=== PATIENT | male | born 1970 | race Caucasian/White ===

== ENCOUNTER → 2018-11-13 | Outpatient (CLI) | payer OTHER ==
--- NOTE | 2018-11-13 11:03 | PCVCIMAG ---
APPROVED REPORT Study performed: 11/13/2018 09:52:02 EXAM: Comprehensive 2D, Doppler, and color-flow Echocardiogram Patient Location: Echo lab Status: routine BSA: 2.51 HR: 64 bpmBP: 136/92 mmHg Rhythm: NSR Other Information Study Quality: Adequate Risk Factors: Cardiac Risk Factors: HTN Indications Abnormal ECG Pulmonary Embolism Dyspnea 2D Dimensions IVSd: 12.91 (7-11mm) LVDd: 50.93 mm PWd: 13.90 (7-11mm)Ascending Ao: 38.45 (22-36mm) LVDs: 36.01 (25-40mm) Left Atrium: 47.67 (27-40mm) Aortic Root: 35.44 mm LV Single Plane 4CH: 55.32 % LV Single Plane 2CH: 59.32 % Biplane EF: 56.7 % Volumes Left Atrial Volume (Systole) Single Plane 4CH: 98.43 mLSingle Plane 2CH: 84.39 mL LA ESV Index: 38.00 mL/m2 Aortic Valve AoV Peak Jose.: 1.47 m/s AO Peak Gr.: 8.59 mmHgLVOT Max P.07 mmHg LVOT Max V: 1.23 m/s Mitral Valve E/A Ratio: 1.2 MV Decel. Time: 264.75 ms MV E Max Jose.: 0.67 m/s MV A Jose.: 0.56 m/s IVRT: 100.35 ms Pulmonary Valve PV Peak Jose.: 1.03 m/sPV Peak Gr.: 4.20 mmHg Pulmonary Vein P Vein S: 0.41 m/sP Vein A: 0.34 m/s P Vein D: 0.43 m/sP Vein A Dur.: 155.7 msec P Vein S/D Ratio: 0.95 Tricuspid Valve TR Peak Jose.: 2.67 m/s TR Peak Gr.: 28.48 mmHg TV Vmax: 0.52 m/s Left Ventricle The left ventricle is normal size. There is normal LV segmental wall motion. Mild concentric left ventricular hypertrophy. Left ventricular systolic function is normal. The left ventricular ejection fraction is within the normal range. LVEF is 55%. Grade I - abnormal relaxation pattern. Right Ventricle The right ventricle is normal size. The right ventricular systolic function is normal. Atria Left atrium is mildly dilated. The right atrium size is normal. Aortic Valve The aortic valve is normal in structure. Trace aortic regurgitation. There is no aortic valvular stenosis. Mitral Valve The mitral valve is normal in structure. Trace mitral regurgitation. No evidence of mitral valve stenosis. Tricuspid Valve The tricuspid valve is normal in structure. Trace to mild tricuspid regurgitation with PAP of 35 mmHg. Pulmonic Valve The pulmonary valve is normal in structure. There is no pulmonic valvular regurgitation. Great Vessels The aortic root is normal in size. IVC is normal in size and collapses >50% with inspiration. Pericardium There is no pericardial effusion. There is no pleural effusion. <Conclusion> The left ventricle is normal size. Mild concentric left ventricular hypertrophy. Left ventricular systolic function is normal. Grade I - abnormal relaxation pattern. The right ventricle is normal size. Left atrium is mildly dilated. The right atrium size is normal. Trace aortic regurgitation. Trace mitral regurgitation. Trace to mild tricuspid regurgitation with PAP of 35 mmHg.
--- NOTE | 2018-11-13 11:05 | PCVCIMAG ---
APPROVED REPORT Study performed: 11/13/2018 10:24:00 Exam: Stress Echocardiogram Indication: Dyspnea , Hypertension, abn ekg, hx pulmonary embolism Patient Location: Echo lab Stress Nurse: Bev Gonzalez RN Status: routine Ht: 6 ft 3 in HR: 86 bpm BP: 136/92 mmHg Rhythm: NSR Procedure The patient underwent an Exercise Stress Test using the Juancarlos Protocol. Blood pressure, heart rate, and EKG were monitored. An Echocardiogram was performed by machines technician in four stages in quad fashion. At peak stress, four selected images were obtained and placed side by side with resting images for comparison. Stress Test Details Stress Test: Exercise stress testing was performed using a Juancarlos protocol. HR Resting HR: 86 bpmMax Heart Rate (APMHR): 171 bpm Max HR Achieved: 169 bpmTarget HR (85% APMHR): 145 bpm % of APMHR: 98 Recovery HR: 106 bpm HR response to stress: Normal HR response to stress BP Resting BP: 136/92 mmHg Max BP: 180/86 mmHg Recovery BP: 146/80 mmHg BP response to stress: Normal blood pressure response to stress. ECG Resting ECG: Sinus Rhythm Stress ECG: Sinus Rhythm ST Change: Non-ischemic Arrhythmia: None Recovery ECG: Sinus Rhythm Recovery ST Change: Normal Recovery Arrhythmia: None Clinical Reason for Termination: Maximal effort Stress Symptoms: Dyspnea, Leg Fatigue Exercise duration: 8 min 1 sec Highest Stage Achieved: Stage 3: 3.4 mph at 14% grade. Exercise capacity: 9.6 METs Overall Exercise Capacity for Age: Normal Scale: Sedentary Angina Score: None Pre-Stress Echo The resting Echocardiogram showed normal left ventricular contractility with an estimated Ejection Fraction of about >55%. Normal wall motion in all segments on baseline images. Post-Stress Echo The stress Echocardiogram showed normal left ventricular contractility with an estimated Ejection Fraction of about 65%. Normal augmentation of wall motion in all segments on post stress images. Clinical No clinical or ECG evidence for ischemia. Conclusion Clinical Response: Non-ischemic Exercise Capacity: Average Stress ECG Response: Non-ischemic Stress Echo Images: Non-ischemic The left ventricle is normal in size and wall thickness in both the rest and stress images. Other Information Study Quality: Adequate <Conclusion> The left ventricle is normal in size and wall thickness in both the rest and stress images.
== END | disposition home or self-care (01) ==
LOC: PCVCIMAG 09:56
PROVIDERS: ATTEND Internal Medicine Cardiovascular Disease
DX: R94.31 Abnormal electrocardiogram [ECG] [EKG] (principal); R06.00 Dyspnea, unspecified; I26.99 Other pulmonary embolism without acute cor pulmonale; I11.9 Hypertensive heart disease without heart failure
CPT/HCPCS: 93306; 93351